=== PATIENT | female | born 1985 | race Caucasian/White ===

== ENCOUNTER 2021-02-22 10:26 | Emergency (ER) | payer OTHER ==
[~2021-02-22 10:26] MED LIST: FLAGYL500 MG PO; FLORASTOR250 MG PO; MINOCYCLINE HC100 MG PO; NORCO 10-325 T1 EACH PO; ZOFRAN ODT 4 MG4 MG SL
[2021-02-22 11:09] LABS: RED BLOOD COUNT 4.37 M/UL (4.00-5.10)
[2021-02-22 11:37] LABS: BUN/CREATININE RATIO 22 (0-10)
== END 2021-02-22 12:28 | disposition home or self-care (01) ==
LOC: ER1 10:26
PROVIDERS: Student in an Organized Health Care Education/Training Program
DX: M79.662 Pain in left lower leg (principal); Z79.899 Other long term (current) drug therapy; Z90.710 Acquired absence of both cervix and uterus
CPT/HCPCS: 80053; 82550; 82553; 85025; 96374; 99284; J1885

== ENCOUNTER → 2021-02-24 | Outpatient (CLI) | payer OTHER | LOC: US 12:36 | DX: R22.42 Localized swelling, mass and lump, left lower limb (principal) | CPT/HCPCS: 93971 ==

== ENCOUNTER → 2021-02-27 | Outpatient (CLI) | payer OTHER ==
[2021-02-27 14:06] LABS: HEMOGLOBIN 14.2 gm/dl (12.3-15.3); RED BLOOD COUNT 4.75 M/UL (4.00-5.10); WHITE BLOOD COUNT 6.7 K/UL (4.5-11.0)
[2021-02-28 07:10] LABS: PROGESTERONE 0.1 ng/mL (.)
[2021-02-28 15:13] LABS: LYME IGG/IGM AB <0.91 ISR (0.00-0.90)
[2021-03-02 12:11] LABS: DRVVT 30.3 sec (0.0-47.0); LUPUS REFLEX INTERPRETATION Comment: (.); PT 10.8 sec (9.1-12.0); PT 1:1NP 10.5 sec (9.1-12.0); PTT-LA 31.6 sec (0.0-51.9); THROMBIN TIME 17.4 sec (0.0-23.0)
[2021-03-02 16:11] LABS: ANTI-CENTROMERE B ANTIBODIES <0.2 AI (0.0-0.9); ANTI-DNA (DS) AB QN 1 IU/mL (0-9); ANTI-JO-1 <0.2 AI (0.0-0.9); ANTICHROMATIN ANTIBODIES <0.2 AI (0.0-0.9); ANTIRIBOSOMAL P ANTIBODIES <0.2 AI (0.0-0.9); ANTISCLERODERMA-70 ANTIBODIES <0.2 AI (0.0-0.9); RNP ANTIBODIES <0.2 AI (0.0-0.9); SJOGREN'S ANTI-SS-A <0.2 AI (0.0-0.9); SJOGREN'S ANTI-SS-B <0.2 AI (0.0-0.9); SMITH ANTIBODIES <0.2 AI (0.0-0.9); SMITH/RNP ANTIBODIES <0.2 AI (0.0-0.9)
[2021-03-04 14:15] LABS: ESTRADIOL 63.8 pg/mL (.); ESTRONE, SERUM 78 pg/mL (.)
== END ==
LOC: LAB 12:45
PROVIDERS: Nurse Practitioner Family
DX: I73.00 Raynaud's syndrome without gangrene (principal); G47.00 Insomnia, unspecified; M54.5 Low back pain; E56.9 Vitamin deficiency, unspecified; N95.1 Menopausal and female climacteric states; M79.609 Pain in unspecified limb; Z80.3 Family history of malignant neoplasm of breast
CPT/HCPCS: 36415; 80053; 82180; 82607; 82652; 82670; 82679; 82746; 83516; 83540; 83550; 83605; 84144; 84207; 84425; 84591; 85027; 85611; 85652; 86618

== ENCOUNTER 2022-04-06 11:33 | Emergency (ER) | payer BC, OTHER ==
[2022-04-06 12:24] LABS: HEMOGLOBIN 14.1 gm/dl (12.3-15.3); RED BLOOD COUNT 4.61 M/UL (4.00-5.10); WHITE BLOOD COUNT 6.5 K/UL (4.5-11.0)
[2022-04-06 12:55] LABS: BUN/CREATININE RATIO 18 (0-10)
[2022-04-06] MEDS ORDERED: MIRALAX17 GM PO (15:35)
[2022-04-06] MEDS ORDERED: NAPROXEN500 MG PO (15:35)
[2022-04-06] MEDS ORDERED: ZOFRAN 4 MG TAB4 MG PO (15:35)
== END 2022-04-06 15:45 | disposition home or self-care (01) ==
LOC: ER1 11:33
PROVIDERS: Physician Assistant Medical
DX: R10.30 Lower abdominal pain, unspecified (principal); R11.0 Nausea; K59.00 Constipation, unspecified; N83.8 Other noninflammatory disorders of ovary, fallopian tube and broad ligament; Z90.710 Acquired absence of both cervix and uterus
CPT/HCPCS: 76830; 80053; 81001; 83605; 85025; 96374; 96375; 99284; J2270; J2405; Q9967